=== PATIENT | female | born 1975 | race Caucasian/White ===

== ENCOUNTER 2016-12-11 10:31 | Emergency (ER) | payer SELFPAY ==
[2016-12-11 10:38] VITALS: TEMP 98.1
[2016-12-11] MEDS ORDERED: ACETAMINOPHEN IV (For NPO) 1,000 MG in EMPTY BAG 1 BAG IVPB ONE (10:44)
[2016-12-11 11:20] LABS: Basophils # (A) 0.1 k/uL (0-0.2); Basophils % (A) 1 %; CH 29.4; CHCM 32.1; Eosinophils # (A) 0.1 k/uL (0-0.7); Eosinophils % (A) 1 %; HCT 40.4 % (34.0-46.0); HDW 2.09; HGB 13.3 gm/dL (11.4-16.0); Luc # (Auto) 0.14; Luc % (Auto) 1; Lymphocytes # (A) 1.3 k/uL (1.0-4.8); Lymphocytes % (A) 13 %; MCH 30.3 pg (25.0-35.0); MCV 91.9 fL (80.0-100.0); Mean Platelet Volume 7.6; Monocytes # (A) 0.7 k/uL (0-1.0); Monocytes % (A) 7 %; Neutrophils # (A) 8.2 k/uL (1.3-7.7); Neutrophils % (A) 78 %; WBC 10.5 k/uL (3.8-10.6); WBC (Perox) 10.44
--- NOTE | 2016-12-11 11:20 | XR ---
EXAMINATION TYPE: XR chest 2V DATE OF EXAM: 12/11/2016 CLINICAL HISTORY: Chest pain TECHNIQUE: Frontal and lateral views of the chest are obtained. COMPARISON: 07/22/2014 FINDINGS: There is no focal air space opacity, pleural effusion, or pneumothorax seen. The cardiac silhouette size is within normal limits. The osseous structures are intact. IMPRESSION: No acute cardiopulmonary process.
[2016-12-11 11:26] LABS: ALT 31 U/L (9-52); AST 16 U/L (14-36); Alkaline Phosphatase 81 U/L (38-126); Anion Gap 11 mmol/L; Blood Urea Nitrogen 16 mg/dL (7-17); Calcium 9.2 mg/dL (8.4-10.2); Carbon Dioxide 24 mmol/L (22-30); Chloride 105 mmol/L (98-107); Glucose 95 mg/dL (74-99); Magnesium 1.6 mg/dL (1.6-2.3); Non-African American GFR(MDRD) >60 (>60 ml/min/1.73 sqM); Potassium 3.8 mmol/L (3.5-5.1); Sodium 140 mmol/L (137-145); Total Bilirubin 0.3 mg/dL (0.2-1.3); Total Protein 7.1 g/dL (6.3-8.2)
[2016-12-11 11:41] LABS: Partial Thromboplastin Time 25.6 sec (22.0-30.0); Prothrombin Time 10.1 sec (9.0-12.0)
--- NOTE | 2016-12-11 12:24 | ED ---
Chest Pain HPI - General Chief Complaint: Chest Pain Stated Complaint: Chest Pain Time Seen by Provider: 12/11/16 10:40 Source: patient Mode of arrival: wheelchair Limitations: no limitations - History of Present Illness Initial Comments: Patient complains of chest pain. Pain is in the epigastric and middle chest area. It does not radiate anywhere. She has no flank pain. She has no back pain. She has no shortness of breath. She has no lightheadedness or dizziness. She has no neck pain or stiffness. Nothing makes her symptoms better or worse. She was not doing anything when the symptoms began. She denies any pain or swelling the legs. She has no palpitations. She has not taken any medication for this. She denies injuries. She has no nausea or vomiting or diaphoresis. - Related Data Home Medications Medication Instructions Recorded Confirmed Albuterol Inhaler [Ventolin Hfa 2 puff INHALATION RT-Q4H PRN 06/24/13 12/11/16 Inhaler] SUMAtriptan SUCCINATE [Imitrex] 100 mg PO BID PRN 07/10/14 12/11/16 Magnesium Gluconate [Magonate] 500 mg PO DAILY 12/11/16 12/11/16 Mometasone/Formoterol [Dulera 200 1 puff INHALATION RT-BID 12/11/16 12/11/16 Mcg/5 Mcg Inhaler] Sertraline [Zoloft] 100 mg PO DAILY 12/11/16 12/11/16 clonazePAM [KlonoPIN] 1 mg PO DAILY PRN 12/11/16 12/11/16 clonazePAM [KlonoPIN] 1 mg PO HS 12/11/16 12/11/16 Allergies Allergy/AdvReac Type Severity Reaction Status Date / Time bupropion HCl AdvReac Severe SUICIDAL Verified 12/11/16 10:58 [From Wellbutrin] ketorolac tromethamine AdvReac Unknown HEADACHE Verified 12/11/16 10:58 [From Toradol] Review of Systems ROS Statement: Those systems with pertinent positive or pertinent negative responses have been documented in the HPI. ROS Other: All systems not noted in ROS Statement are negative. EKG Findings - EKG Comments: EKG Findings:: Twelve-lead EKG is obtained, interpreted by me as showing ventricular rate 76 bpm, normal TX interval and QRS complexes, no ST elevation or depression, interpreted by me as normal sinus rhythm. Past Medical History Past Medical History: Asthma Additional Past Medical History / Comment(s): MIGRAINES, HX OF FX NOSE AND KNEE. , DIFFICULTY SLEEPING., UMBILICAL HERNIA. History of Any Multi-Drug Resistant Organisms: None Reported Additional Past Surgical History / Comment(s): nasal bone surgery, cranial shunt at , removal of shunt, hernia surg Past Anesthesia/Blood Transfusion Reactions: Family History of Problems w/ Anesthesia, Motion Sickness, Postoperative Nausea & Vomiting (PONV) Additional Past Anesthesia/Blood Transfusion Reaction / Comment(s): MOTHER = PONV Past Psychological History: Anxiety, Bipolar, Depression Smoking Status: Former smoker Past Alcohol Use History: Rare Past Drug Use History: Marijuana - Past Family History Father Additional Family Medical History / Comment(s): Father at age 36 due to alcohol and motorcycle accident. Mother Additional Family Medical History / Comment(s): Mother is alive at age 64 with no major medical problems. Brother(s) Additional Family Medical History / Comment(s): She has 2 half brothers with no major medical problems. Son(s) Additional Family Medical History / Comment(s): She has one 11-year-old son with ADHD Sister(s) Family Medical History: Cancer Additional Family Medical History / Comment(s): (2) SISTERS = SKIN [place]. She has 3 sisters and one half-sister. General Exam Limitations: no limitations General appearance: alert, in no apparent distress Head exam: Present: atraumatic, normocephalic, normal inspection Eye exam: Present: normal appearance, PERRL, EOMI. Absent: scleral icterus, conjunctival injection, periorbital swelling ENT exam: Present: normal exam, mucous membranes moist Neck exam: Present: normal inspection. Absent: tenderness, meningismus, lymphadenopathy Respiratory exam: Present: normal lung sounds bilaterally. Absent: respiratory distress, wheezes, rales, rhonchi, stridor Cardiovascular Exam: Present: regular rate, normal rhythm, normal heart sounds. Absent: systolic murmur, diastolic murmur, rubs, gallop, clicks GI/Abdominal exam: Present: soft, normal bowel sounds. Absent: distended, tenderness, guarding, rebound, rigid Extremities exam: Present: normal inspection, full ROM, normal capillary refill. Absent: tenderness, pedal edema, joint swelling, calf tenderness Back exam: Present: normal inspection Neurological exam: Present: alert, oriented X3, CN II-XII intact Psychiatric exam: Present: normal affect, normal mood Skin exam: Present: warm, dry, intact, normal color. Absent: rash Course Vital Signs 12/11/16 12/11/16 10:37 11:15 Temperature 98.1 F Pulse Rate 90 78 Respiratory 20 18 Rate Blood Pressure 120/65 133/78 O2 Sat by Pulse 99 98 Oximetry Chest Pain MDM - [facility] Patient complains of chest pain. She has 0 risk factors for pulmonary embolism. This could be a viral URI or pneumonia. Twelve-lead EKG is unremarkable. Chest x-rays unremarkable. Laboratory studies are unremarkable. Patient is feeling better. There is no evidence of an acute emergency condition. She is stable for discharge. Disposition Clinical Impression: Chest pain Disposition: HOME SELF-CARE Condition: Good Instructions: Chest Pain (ED) Referrals: Jaimie Malone DO [Primary Care Provider] - 1-2 days Time of Disposition: 12:24
[2016-12-11 12:53] VITALS: BP 123/77; PULSE 72; RESP 16
== END 2016-12-11 12:53 | disposition home or self-care (01) ==
LOC: EC 10:31
DX: R07.9 Chest pain, unspecified (principal); F31.9 Bipolar disorder, unspecified; F41.9 Anxiety disorder, unspecified; J45.909 Unspecified asthma, uncomplicated; Z87.891 Personal history of nicotine dependence; Z88.6 Allergy status to analgesic agent; Z88.8 Allergy status to other drugs, medicaments and biological substances; Z79.51 Long term (current) use of inhaled steroids; Z79.899 Other long term (current) drug therapy
CPT/HCPCS: 36415; 93005; 83880; 80053; 83690; 83735; 84484; 85025; 85610; 85730; 71020; 99285; 96365; J0131